=== PATIENT | female | born 1950 | race Caucasian/White ===

== ENCOUNTER 2020-02-03 11:09 | Observation (INO) | payer MEDICARE, BC ==
[~2020-02-03] VITALS: Ht 165.1 cm; Wt 93.5 kg
[2020-02-03] MEDS ORDERED: Prozac20 MG PO (11:16)
[2020-02-03] MEDS ORDERED: OMEP20ER PO (11:16)
[2020-02-03 11:29] LABS: BASOPHILS ABSOLUTE AUTO 0.08 K/mm3 (0.00-0.23); BASOPHILS PERCENT AUTO 1 % (0-2); EOSINOPHILS PERCENT AUTO 2 % (0-6); Hematocrit 33.5 % (33.0-51.0); Hemoglobin 9.3 g/dL (11.5-16.0); IMMATURE GRAN ABSOLUTE AUTO 0.03 K/mm3 (0.00-0.10); IMMATURE GRAN PERCENT AUTO 0 % (0-1); LYMPHOCYTES ABSOLUTE AUTO 2.64 K/mm3 (0.84-5.20); LYMPHOCYTES PERCENT AUTO 29 % (21-46); MONOCYTES ABSOLUTE AUTO 0.58 K/mm3 (0.16-1.47); MONOCYTES PERCENT AUTO 7 % (4-13); Mean Corpuscular HGB 23.5 pg (26.0-34.0); Mean Corpuscular HGB Conc 27.8 g/dL (31.5-36.5); Mean Corpuscular Volume 85 fL (80-100); Mean Platelet Volume 9.3 fL (9.1-12.4); NEUTROPHILS ABSOLUTE AUTO 5.46 K/mm3 (1.96-9.15); NEUTROPHILS PERCENT AUTO 61 % (41-73); Platelet Count 389 K/mm3 (150-400); RDW Coefficient Variation 18.6 % (11.7-14.2); RDW Standard Deviation 57.2 fL (35.1-46.3); Red Blood Cell Count 3.95 M/mm3 (3.80-5.20); White Blood Cell Count 8.99 K/mm3 (4.00-11.30)
[2020-02-03 11:49] LABS: Alanine Aminotransfer (ALT/SGP 19 U/L (12-78); Albumin, Blood 3.6 g/dL (3.4-5.0); Albumin/Globulin Ratio 0.9 (0.8-1.8); Alk Phos 86 U/L (50-136); Anion Gap 10 mmol/L (6-16); Aspartate Aminotrans (AST/SGOT 16 U/L (12-37); Bilirubin, Total 0.4 mg/dL (0.1-1.0); Blood Urea Nitrogen 12 mg/dL (8-24); Bun/Creatinine Ratio 16.1 (12.0-20.0); CO2, Blood 23 mmol/L (21-32); Calcium, Blood 8.7 mg/dL (8.5-10.1); Chloride, Blood 110 mmol/L (98-108); Creatinine, Blood 0.75 mg/dL (0.40-1.00); Globulin, Blood 3.9 g/dL (2.2-4.0); Glomerular Filtration Rate >60 (60-); Glucose, Blood 94 mg/dL (70-99); Magnesium, Blood 2.4 mg/dL (1.6-2.4); Potassium, Blood 3.7 mmol/L (3.5-5.5); Sodium, Blood 143 mmol/L (136-145); Total Protein, Blood 7.5 g/dL (6.4-8.2); Troponin I <0.015 ng/mL (0.000-0.040)
--- NOTE | 2020-02-03 19:13 | NUR ---
PCU DAYSHIFT SUMMARY - ADMIT NOTE PATIENT ALERT AND ORIENTED X4. ON ROOM AIR. NO S/SX OF DISTRESS, DENIES PAIN. INDEPENDENT IN ROOM. AFIB 150'S NOTED PER MONTIOR TECH. CARDIEZEM GTT RUNNING AT 15 ML/ HR. ORAL MEDICATIONS STARTED PER EMAR. REPORTED TO NOC SHIFT RN KOREY.
[2020-02-04 03:52] LABS: Anion Gap 10 mmol/L (6-16); Blood Urea Nitrogen 14 mg/dL (8-24); Bun/Creatinine Ratio 17.4 (12.0-20.0); CO2, Blood 22 mmol/L (21-32); Calcium, Blood 8.7 mg/dL (8.5-10.1); Chloride, Blood 107 mmol/L (98-108); Creatinine, Blood 0.81 mg/dL (0.40-1.00); Glomerular Filtration Rate >60 (60-); Glucose, Blood 107 mg/dL (70-99); Potassium, Blood 3.9 mmol/L (3.5-5.5); Sodium, Blood 139 mmol/L (136-145)
--- NOTE | 2020-02-04 06:06 | NUR ---
END OF SHIFT SUMMARY PT AXO. CARDIZEM GTT CONTINUES HAS BEEN TITRATED FROM 15 DOWN TO 5 AND NOW HAS BEEN TITRATED TO 10 TO MEET HR OF <110. AT ONE POINT, HR 80'S, BP STABLE BUT LOW, REMAINED IN AFLUTTER. PT TOLERATING THIS FLUCTUATION IN HR WELL. PT COMPLAINS OF SLIGHT PAIN TO R UPPER CLAVICULAR AREA AND HEADACHE, MEDS GIVEN PER EMAR. OTHERWISE, PT HAS BEEN RESTING IN ROOM QUIETLY. WILL CONTINUE TO MONITOR UNTIL SHIFT CHANGE.
--- NOTE | 2020-02-04 12:01 | NUR ---
PCU CARDIOVERSION PROVIDER OLEG AT BEDSIDE, RT ADRIEN AND THIS RN. PATIENT SEDATED . TOLERATED SEDATION WELL WITH MINIMAL OXYGEN REQUIREMENTS DURING SEDATION AND MILD HYPOTENSION. PATIENT CONVERTED FROM AFLUTTER TO NSR IN THE 'S AFTER 200 J SYNC'ED SHOCK PERFORMED. PATIENT NOW ON ROOM AIR AND VSS.
[2020-02-04] MEDS ORDERED: Prozac20 MG PO (12:39)
[2020-02-04] MEDS ORDERED: OMEP20ER PO (12:40)
[2020-02-04] MEDS ORDERED: METO25 PO (12:40)
[2020-02-04] MEDS ORDERED: XARELTO20 MG PO (12:41)
--- NOTE | 2020-02-04 13:11 | NUR ---
PCU DISCHARGE SUMMARY PATIENT REMAINED ALERT AND ORIENTED X4 T/O SHIFT. RESP E/U ON ROOM AIR. PATIENT REMAINED IN NSR POST CARDIOVERSION. INDEPENDENT IN ROOM. PATIENT VERBALZIED NEW MEDICATION AND DISCHARGE EDUCATION. PATIENT TO LEAVE UNIT VIA WHEEL CHAIR HOME WITH DAUGHTER AND SON.
--- NOTE | 2020-02-04 13:28 | NUR ---
echocardiogram complete
== END 2020-02-04 14:21 | disposition home or self-care (01) ==
LOC: ER 11:09 → PCU 11:10 → ERHOLD 11:10 → PCU 14:11
PROVIDERS: Emergency Medicine; ADMIT Hospitalist
DX: I48.92 Unspecified atrial flutter (principal); D50.0 Iron deficiency anemia secondary to blood loss (chronic); F33.42 Major depressive disorder, recurrent, in full remission; K21.9 Gastro-esophageal reflux disease without esophagitis
CPT/HCPCS: 36415; 71046; 80048; 80053; 83735; 83880; 84443; 84484; 85025; 93005; 93010; 93306; 96365; 96372; 96375; 96376; 99285-25; A9270; A9270-GY; G0378; J1650; J2250; J3010

== ENCOUNTER 2020-02-23 13:19 | Inpatient (IN) | payer MEDICARE, BC ==
[~2020-02-23] VITALS: Ht 165.1 cm; Wt 91.0 kg
[~2020-02-23 13:19] MED LIST: METO25 PO; OMEP20ER PO; Prozac20 MG PO; XARELTO20 MG PO
[2020-02-23] MEDS ORDERED: Flecainide Acet50 MG PO (13:32)
[2020-02-23 13:50] LABS: BASOPHILS ABSOLUTE AUTO 0.08 K/mm3 (0.00-0.23); BASOPHILS PERCENT AUTO 0 % (0-2); EOSINOPHILS PERCENT AUTO 0 % (0-6); Hematocrit 28.2 % (33.0-51.0); Hemoglobin 8.1 g/dL (11.5-16.0); IMMATURE GRAN ABSOLUTE AUTO 0.17 K/mm3 (0.00-0.10); IMMATURE GRAN PERCENT AUTO 1 % (0-1); LYMPHOCYTES PERCENT AUTO 7 % (21-46); MONOCYTES PERCENT AUTO 3 % (4-13); Mean Corpuscular HGB 23.2 pg (26.0-34.0); Mean Corpuscular HGB Conc 28.7 g/dL (31.5-36.5); Mean Corpuscular Volume 81 fL (80-100); Mean Platelet Volume 9.1 fL (9.1-12.4); NEUTROPHILS ABSOLUTE AUTO 20.48 K/mm3 (1.96-9.15); NEUTROPHILS PERCENT AUTO 90 % (41-73); Platelet Count 539 K/mm3 (150-400); RDW Coefficient Variation 17.4 % (11.7-14.2); RDW Standard Deviation 50.7 fL (35.1-46.3); Red Blood Cell Count 3.49 M/mm3 (3.80-5.20); White Blood Cell Count 22.83 K/mm3 (4.00-11.30)
[2020-02-23 14:03] LABS: International Normalized Ratio 1.23
[2020-02-23 14:11] LABS: Alanine Aminotransfer (ALT/SGP 21 U/L (12-78); Albumin, Blood 3.5 g/dL (3.4-5.0); Alk Phos 81 U/L (50-136); Anion Gap 10 mmol/L (6-16); Aspartate Aminotrans (AST/SGOT 14 U/L (12-37); Bilirubin, Total 0.1 mg/dL (0.1-1.0); Blood Urea Nitrogen 37 mg/dL (8-24); Bun/Creatinine Ratio 36.3 (12.0-20.0); CO2, Blood 19 mmol/L (21-32); Calcium, Blood 8.8 mg/dL (8.5-10.1); Chloride, Blood 109 mmol/L (98-108); Creatinine, Blood 1.02 mg/dL (0.40-1.00); Globulin, Blood 3.5 g/dL (2.2-4.0); Glomerular Filtration Rate 57 (60-); Glucose, Blood 123 mg/dL (70-99); Potassium, Blood 3.9 mmol/L (3.5-5.5); Sodium, Blood 138 mmol/L (136-145); Troponin I <0.015 ng/mL (0.000-0.040)
[2020-02-23 15:40] LABS: Source, Urine Clean Catch
[2020-02-23 16:51] LABS: Appearance, Urine Clear (Clear); Color, Urine Yellow (P-Yellow)
[2020-02-23 16:52] LABS: Bilirubin, Urine Neg (Neg); Blood, Urine 1+ (Neg); Glucose Qualitative, Urine Neg (Neg); Ketones, Urine Neg (Neg); Leukocyte Esterase, Urine 1+ (Neg); Nitrite, Urine Neg (Neg); Protein, Urine Neg (Neg); Urobilinogen, Urine NORM (Normal)
[2020-02-23 16:57] LABS: Bacteria Few /hpf; Red Blood Cells, Urine 0-2 /hpf (0-2); Squamous Epithelial Cells Few /hpf (Few)
[2020-02-23 19:47] LABS: Hematocrit 25.7 % (33.0-51.0); Hemoglobin 7.2 g/dL (11.5-16.0)
--- NOTE | 2020-02-23 22:30 | NUR ---
UPDATE NURSE PRACTIONER ANITA NOTIFIED THAT PATIENT WAS HAVING A BAD HEADACHE THAT WAS GETTING WORSE AFTER TYLENOL PROVIDED. ORDERS RECEIVED.
[2020-02-23 23:10] LABS: Hemoglobin 7.5 g/dL (11.5-16.0)
[2020-02-23] MEDS ORDERED: FERROUSUL325 MG PO (23:11)
--- NOTE | 2020-02-24 00:58 | NUR ---
UPDATE PATIENT COMPLAINING OF CONGESTION AND DIFFICULTY BREATHING DUE TO THAT. DR DE LA FUENTE NOTIFIED, ORDERS RECEIVED.
[2020-02-24 04:12] LABS: BASOPHILS ABSOLUTE AUTO 0.08 K/mm3 (0.00-0.23); BASOPHILS PERCENT AUTO 1 % (0-2); EOSINOPHILS ABSOLUTE AUTO 0.07 K/mm3 (0.00-0.68); EOSINOPHILS PERCENT AUTO 0 % (0-6); Hematocrit 22.1 % (33.0-51.0); Hemoglobin 6.4 g/dL (11.5-16.0); IMMATURE GRAN ABSOLUTE AUTO 0.09 K/mm3 (0.00-0.10); IMMATURE GRAN PERCENT AUTO 1 % (0-1); LYMPHOCYTES ABSOLUTE AUTO 4.02 K/mm3 (0.84-5.20); LYMPHOCYTES PERCENT AUTO 25 % (21-46); MONOCYTES ABSOLUTE AUTO 0.86 K/mm3 (0.16-1.47); MONOCYTES PERCENT AUTO 5 % (4-13); Mean Corpuscular HGB 23.6 pg (26.0-34.0); Mean Corpuscular Volume 82 fL (80-100); Mean Platelet Volume 9.2 fL (9.1-12.4); NEUTROPHILS ABSOLUTE AUTO 10.82 K/mm3 (1.96-9.15); NEUTROPHILS PERCENT AUTO 68 % (41-73); Platelet Count 393 K/mm3 (150-400); RDW Coefficient Variation 17.7 % (11.7-14.2); RDW Standard Deviation 51.9 fL (35.1-46.3); Red Blood Cell Count 2.71 M/mm3 (3.80-5.20); White Blood Cell Count 15.94 K/mm3 (4.00-11.30)
[2020-02-24 04:29] LABS: Bun/Creatinine Ratio 23.8 (12.0-20.0); Calcium, Blood 8.1 mg/dL (8.5-10.1); Creatinine, Blood 1.05 mg/dL (0.40-1.00); Potassium, Blood 3.9 mmol/L (3.5-5.5)
--- NOTE | 2020-02-24 08:10 | NUR ---
ADMIT NOTE/SHIFT SUMMARY PATIENT ADMITTED EARLIER THIS SHIFT FROM THE ER AND WAS ABLE TO TRANSFER SELF FROM THE GURNEY TO THE BED WITH SBA. PATIENT DENIES ANY DIZZINESS OR LIGHT HEADEDNESS. PATIENT SETTLED IN AND ORIENTED TO THE ROOM, UNIT, AND CALL LIGHT. PATIENT APPEARED TO NAP ON AND OFF THROUGHOUT THE REST OF THE NIGHT. PATIENT VERY PLEASENT AND COOPERATIVE. PROTONIX GTT RUNNING PER ORDERS. PATIENT CURRENTLY RECEIVING 1 UNIT OF PRBC PER ORDERS AND APPEARS TO BE TOLERATING IT WELL. REPORT GIVEN TO ONCOMING RN.
[2020-02-24 12:37] LABS: Hematocrit 24.3 % (33.0-51.0); Hemoglobin 7.1 g/dL (11.5-16.0)
--- NOTE | 2020-02-24 18:10 | NUR ---
History, Chart, Medications and Allergies reviewed before start of procedure. Lungs clear T/O to Auscultation. Patient confirms NPO status and agrees with scheduled surgery. Pre-Op teaching done. Pt verbalizes understanding.
--- NOTE | 2020-02-24 18:28 | NUR ---
02/24/20 1828 Bony Easley PATIENT DETERMINED TO BE ASA APPROPRIATE FOR PROPOFOL SEDATION PRIOR TO START OF PROCEDURE BY DR. Piotr Carrillo Placed3-LEAD EKG REVIEWED WITH PHYSICIAN PRIOR TO START OF PROCEDURE.Patient to ENDO 1History, Chart, Medications and Allergies reviewed before start of procedure.MONITOR INTACT WITH CONTINUOUS PULSE OXIMETRY AND INTERMITTENT BP.O2 VIA N/C INTACT THROUGHOUT SEDATION/PROCEDURE.
--- NOTE | 2020-02-24 18:33 | NUR ---
SHIFT NOTES PT LEFT FOR OR AT 1800 FOR ENDOSCOPY. PT HAS RESTED WELL IN BED T/O THE DAY. NO COMPLAINTS OF PAIN. PT HAS BEEN INDEPENDANT T/O THE DAY, UP TO BATHROOM W/O DIFF. PT A/O X4 ANSWERING QUESTIONS APPROPRIATELY IN FULL SENTENCES. NO VOMITTING TODAY, NO BLOODY STOOLS. PT DID RECIEVE 1 UNIT OF PRBC THIS AM. SKIN PWD AND INTACT. ABD SOFT AND ROUND, HYPOACTIVE BT. VSS.
[2020-02-25 05:22] LABS: BASOPHILS ABSOLUTE AUTO 0.06 K/mm3 (0.00-0.23); BASOPHILS PERCENT AUTO 1 % (0-2); EOSINOPHILS ABSOLUTE AUTO 0.06 K/mm3 (0.00-0.68); EOSINOPHILS PERCENT AUTO 1 % (0-6); Hemoglobin 6.6 g/dL (11.5-16.0); IMMATURE GRAN ABSOLUTE AUTO 0.07 K/mm3 (0.00-0.10); IMMATURE GRAN PERCENT AUTO 1 % (0-1); LYMPHOCYTES ABSOLUTE AUTO 2.66 K/mm3 (0.84-5.20); LYMPHOCYTES PERCENT AUTO 31 % (21-46); MONOCYTES ABSOLUTE AUTO 0.59 K/mm3 (0.16-1.47); MONOCYTES PERCENT AUTO 7 % (4-13); Mean Corpuscular HGB 23.8 pg (26.0-34.0); Mean Corpuscular HGB Conc 28.7 g/dL (31.5-36.5); Mean Corpuscular Volume 83 fL (80-100); Mean Platelet Volume 9.4 fL (9.1-12.4); NEUTROPHILS ABSOLUTE AUTO 5.26 K/mm3 (1.96-9.15); NEUTROPHILS PERCENT AUTO 60 % (41-73); Platelet Count 329 K/mm3 (150-400); RDW Coefficient Variation 17.5 % (11.7-14.2); RDW Standard Deviation 51.5 fL (35.1-46.3); Red Blood Cell Count 2.77 M/mm3 (3.80-5.20)
--- NOTE | 2020-02-25 05:28 | NUR ---
ASSUMED CARE OF PATIENT AT APPROXIMATELY 1910 FROM AGNIESZKA Crockett RN. PATIENT ARRIVED BACK TO UNIT S/P EGD AT THIS TIME. PATIENT TRANSFER INDEPENDENT FROM OR TO PCU STRETCHER. VSS. PATIENT'S SON BEDSIDE SHORTLY AFTER RETURN FROM OR. PATIENT REPORTS PAIN IN RIGHT SHOULDER AT TIMES; WARM BLANKET AND PRN TYLENOL GIVEN. PATIENT DENIES NUMBNESS, TINGLING, DIZZINESS OR NAUSEA. TOLERATING LOW FAT DIET WELL. NSR ON TELE; OXYGEN SATURATION ABOVE 90% ON ROOM AIR. PIV S/L. PATIENT CURRENTLY RESTING IN BED; CALL LIGHT IN REACH; BED IN LOWEST POSISTION; WILL CONTINUE TO MONITOR AND ASSESS UNTIL END OF SHIFT.
[2020-02-25 05:43] LABS: Alanine Aminotransfer (ALT/SGP 11 U/L (12-78); Albumin, Blood 2.7 g/dL (3.4-5.0); Albumin/Globulin Ratio 0.9 (0.8-1.8); Alk Phos 66 U/L (50-136); Anion Gap 6 mmol/L (6-16); Aspartate Aminotrans (AST/SGOT 12 U/L (12-37); Bilirubin, Total 0.3 mg/dL (0.1-1.0); Blood Urea Nitrogen 14 mg/dL (8-24); Bun/Creatinine Ratio 14.9 (12.0-20.0); CO2, Blood 24 mmol/L (21-32); Calcium, Blood 8.1 mg/dL (8.5-10.1); Chloride, Blood 113 mmol/L (98-108); Creatinine, Blood 0.94 mg/dL (0.40-1.00); Globulin, Blood 3.1 g/dL (2.2-4.0); Glomerular Filtration Rate >60 (60-); Glucose, Blood 93 mg/dL (70-99); Potassium, Blood 3.4 mmol/L (3.5-5.5); Sodium, Blood 143 mmol/L (136-145); Total Protein, Blood 5.8 g/dL (6.4-8.2)
--- NOTE | 2020-02-25 06:17 | NUR ---
CALLED DR. MARTINEZ TO REPORT HGB OF 6.6; ORDER FOR 1 UNIT RBC. PO POTASSIUM REPLACEMENT FOR 3.4 THIS AM. PATIENT SLEPT ABOUT EIGHT HOURS LAST. VSS. WILL CONTINUE TO MONITOR AND ASSESS UNTIL END OF SHIFT.
--- NOTE | 2020-02-25 08:15 | NUR ---
AM assessment: Pt resting in bed. States that she is feeling good. Denies abd pain, nausea. States she has not had a BM since . Denies back pain, chest pain or SOB. Pt educated on need for blood trasfusion today. Denies questions or concers. Call light in reach. Will continue to monitor.
--- NOTE | 2020-02-25 09:37 | NUR ---
Blood transfusion started. Pt was given education regarding possible blood reaction, S/S of blood reaction and infusion process. Denies questions or concerns. VSS. WIll monitor.
--- NOTE | 2020-02-25 14:30 | NUR ---
Pt and her son were given printed, written and verbal discharge instructions. Denies questions. VSS. Pt denies pain at time of discharge. Stable at time of discharge. Left via w/c.
== END 2020-02-25 14:45 | disposition home or self-care (01) | DRG 308 ==
LOC: ER 13:19 → PCU 13:20
PROVIDERS: Emergency Medicine; Internal Medicine; Internal Medicine Gastroenterology; Nurse Practitioner Acute Care; ADMIT Family Medicine
PROC: 0DB68ZZ Excision of Stomach, Via Natural or Artificial Opening Endoscopic (ICD-10-PCS; principal; 2020-02-24 16:30)
PROC: 30233N1 Transfusion of Nonautologous Red Blood Cells into Peripheral Vein, Percutaneous Approach (ICD-10-PCS; 2020-02-24 16:30)
DX: I48.92 Unspecified atrial flutter (principal); K25.4 Chronic or unspecified gastric ulcer with hemorrhage; Q21.1 Atrial septal defect; K21.9 Gastro-esophageal reflux disease without esophagitis; Z79.01 Long term (current) use of anticoagulants; D50.9 Iron deficiency anemia, unspecified; K44.9 Diaphragmatic hernia without obstruction or gangrene; K31.7 Polyp of stomach and duodenum; F33.42 Major depressive disorder, recurrent, in full remission; K22.8 Other specified diseases of esophagus
CPT/HCPCS: 36415; 70491; 71045; 74150; 80048; 80053; 81001; 82728; 83540; 83550; 83605; 83880; 84443; 84484; 85014; 85018; 85025; 85610; 86850; 86900; 86901; 86923; 87081; 87086; 87430; 93005; 93010; 93308; 93321; 96361-59; 96374-59; 96375-59; 96376-59; 99285-25; A9270; C9113; J0696; J2704; J2916; J7030; J7120; P9016; Q9967; U0002